=== PATIENT | male | born 1995 | race Asian ===

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

== ENCOUNTER 2018-11-07 15:39 | Emergency (ER) | payer OTHER ==
[~2018-11-07] VITALS: Ht 170.2 cm; Wt 69.4 kg
[2018-11-07 15:44] VITALS: BP 132/64; TEMP 98
[2018-11-07 17:42] LABS: PLATELET COUNT 300 K/uL (142-355)
[2018-11-07 18:16] LABS: POTASSIUM 4.5 mmol/L (3.6-5.2)
== END 2018-11-07 18:45 | disposition home or self-care (01) ==
LOC: ED 15:39
PROVIDERS: Emergency Medicine
DX: F32.89 Other specified depressive episodes (principal)
CPT/HCPCS: 80053; 80307; 81000; 85027; 93005; 99283

== ENCOUNTER 2019-03-01 01:40 | Emergency (ER) | payer OTHER ==
[~2019-03-01] VITALS: Ht 167.6 cm; Wt 71.7 kg
[2019-03-01 02:57] VITALS: BP 120/76; TEMP 98.1
== END 2019-03-01 02:57 | disposition home or self-care (01) ==
LOC: ED 01:40
DX: N39.0 Urinary tract infection, site not specified (principal)
CPT/HCPCS: 81000; 87088; 96372; 99283

== ENCOUNTER 2020-01-05 14:35 | Emergency (ER) | payer OTHER ==
[~2020-01-05] VITALS: Ht 175.3 cm; Wt 78.5 kg
[2020-01-05 15:15] VITALS: BP 126/67; TEMP 98.9
== END 2020-01-05 15:15 | disposition home or self-care (01) ==
LOC: ED 14:35
DX: H10.9 Unspecified conjunctivitis (principal)
CPT/HCPCS: 96372; 99283

== ENCOUNTER 2022-07-29 03:31 | Emergency (ER) | payer OTHER ==
[~2022-07-29] VITALS: Ht 175.3 cm; Wt 78.5 kg
[2022-07-29 05:25] VITALS: BP 146/84; TEMP 98.7
== END 2022-07-29 05:30 | disposition home or self-care (01) ==
LOC: ED 03:31
DX: B35.1 Tinea unguium (principal); B35.3 Tinea pedis; M79.671 Pain in right foot
CPT/HCPCS: 96372; 99282; J1885

== ENCOUNTER 2022-09-08 04:32 | Emergency (ER) | payer OTHER ==
[~2022-09-08] VITALS: Ht 182.9 cm; Wt 104.3 kg
[2022-09-08 04:32] VITALS: BP 121/76; TEMP 97.6
== END 2022-09-08 05:30 | disposition home or self-care (01) ==
LOC: ED 04:32
DX: N34.2 Other urethritis (principal)
CPT/HCPCS: 81000; 99282; J0696

== ENCOUNTER 2023-01-18 13:14 | Observation (INO) | payer OTHER ==
[2023-01-18] VITALS (9 sets, daily range): BP systolic 116–130; BP diastolic 59–78; TEMP 97.9–98.5; Ht 175.3 cm; Wt 80.0 kg
[~2023-01-18] VITALS: Ht 175.3 cm; Wt 80.0 kg
[2023-01-18 14:35] LABS: PLATELET COUNT 354 K/uL (142-355)
[2023-01-18 18:02] LABS: PARTIAL THROMBOPLASTIN TIME 35.8 SECONDS (23.9-36.7)
[2023-01-19 03:35] VITALS: BP 115/51; TEMP 98.5
[2023-01-19 08:00] VITALS: BP 102/54; TEMP 98.2
[2023-01-19 12:00] VITALS: BP 110/63; TEMP 97.3
[2023-01-19] MEDS ORDERED: CLINDAMYCIN HY300 MG PO (13:12)
== END 2023-01-19 16:05 | disposition home or self-care (01) ==
LOC: ED 13:14 → MED/SURG 17:20
PROVIDERS: ADMIT Nurse Practitioner; ATTEND Family Medicine
DX: R60.0 Localized edema (principal); M79.672 Pain in left foot; R79.89 Other specified abnormal findings of blood chemistry; E87.6 Hypokalemia; F19.10 Other psychoactive substance abuse, uncomplicated; F31.9 Bipolar disorder, unspecified
CPT/HCPCS: 36415; 80053; 80307; 83605; 85027; 85379; 85610; 85730; 86140; 87040; 90715; 96361; 96365; 96372; 99221; 99284; G0378; J0744; J3370